=== PATIENT | male | born 1995 | race Caucasian/White ===

== ENCOUNTER 2024-01-29 10:23 | Outpatient (REF) | payer BC, SELFPAY ==
[2024-01-29 14:34] LABS: MANUAL DIFF FLAG NO
[2024-01-29 14:42] LABS: Basophils Percent Auto 0.3 % (0-2); Eosinophils Absolute Auto 0.3 X10*3/uL (0.0-0.4); Hemoglobin 15.7 g/dl (14.0-18.0); Imm Gran Abs Auto 0.03 X10*3/uL (0.00-0.03); Imm Gran Pct Auto 0.3 % (0.0-0.4); Lymphocytes Absolute Auto 2.7 X10*3/uL (1.2-4.9); Lymphocytes Percent Auto 24.6 % (20-40); Mean Corpuscular HGB Conc 33.4 g/dl (31.0-36.0); Mean Corpuscular Hemoglobin 28.8 pg (27.0-33.0); Mean Corpuscular Volume 86.1 fL (80.0-98.0); Mean Platelet Volume 10.7 fL (9.4-12.4); Monocytes Absolute Auto 0.5 X10*3/uL (0.1-1.2); Monocytes Percent Auto 4.2 % (2-11); Neutrophils Absolute Auto 7.4 x10*3/uL (2.0-8.3); Neutrophils Percent Auto 67.6 % (45-73); Platelet Count 273 X10*3/uL (160-400); Red Blood Count 5.46 X10*6/uL (4.60-5.80); Red Cell Distribution Width 12.1 % (11.0-16.0); White Blood Count 10.9 X10*3/uL (4.8-10.8)
[2024-01-29 15:12] LABS: Alanine Aminotransferase 30 U/L (0-40); Albumin Level 4.4 g/dL (3.5-5.0); Alkaline Phosphatase 93 U/L (39-117); Anion Gap 11 (12-20); Aspartate Amino Transferase 19 U/L (5-37); Blood Urea Nitrogen 11 mg/dL (9-16); Calcium 9.7 mg/dL (8.4-10.2); Carbon Dioxide 25 mmol/L (22-29); Chloride 106 mmol/L (96-108); Estimated Glomerular Filt Rate > 60; Glucose Random 101 mg/dL (60-115); Sodium 138 mmol/L (135-145); Total Protein 7.9 g/dL (6.5-8.0)
[2024-01-30 08:34] LABS: ~HepC Num1 0.08 S/CO (0.00-0.79); ~Hepatitis C Antibody Nonreactive (Nonreactive)
== END 2024-01-29 10:24 | disposition home or self-care (01) ==
LOC: HO.CHCLDS 10:23
PROVIDERS: Visit Provider Internal Medicine
DX: Z00.00 Encounter for general adult medical examination without abnormal findings (principal)
CPT/HCPCS: 36415; 80053; 85025; 86803

== ENCOUNTER 2025-01-30 12:01 | Outpatient (REF) | payer BC, SELFPAY ==
--- OUTSIDE RECORDS SUMMARY | 2025-01-30 13:00 | XMS_ITS | Encounter Summary ---
Author Organization [facility] Address [address] [place] [address] Care Team Providers Care Hydroelectric Machinery Mechanic Helper Name Role Phone Malcom Vásquez MD Primary Care Provider [facility] Primary Care Provider [phone] [facility], Pcp Primary Care Provider UnavailDaryn Moreno MD Primary Care Provider Unavail able Reason for Visit * Reason Onset Date Comments Advice 07/19/2021 Encounter Details Date Type Department Care Team Description 07/19/2021 Telephone General Surgery - [place] [address] [address] Tarun Sparks MD [address] [place] [phone] Advice Social History Tobacco Use Types Packs/Day Years Used Date Smoking Tobacco: Never Smokeless Tobacco: Never Alcohol Use Standard Drinks/Week Comments Yes 0 (1 standard drink = 0.6 oz pur e alcohol) Socially Sex Assigned at Date Recorded Not on file Job Start Date Occupation Industry Not on file Not on file Not on file documented as of this encounter Miscellaneous Notes * Telephone Encounter - Evonne Anderson - 07/19/2021 2:27 PM EDT Pt is schedule w/Dr Gross on 07/26 * Telephone Encounter - Evonne Anderson - 07/19/2021 11:38 AM EDT I offered him an appt and he wouldn't take it because he can only do Mondays and Dr Sparks isn't here on Mondays. Can we put him in with another provider for a Monday? * Telephone Encounter - Evonne Anderson - 07/19/2021 10:51 AM EDT Patient is asking for Dr Sparks to call him [phone]. He had a pylondial cyst removed last year and he has no feeling where the cyst was and there's still inflammation but no pain. His says it looks funny and wants him to have it checked out. 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 Please advise documented in this encounter Plan of Treatment Not on file documented as of this encounter Visit Diagnoses Not on filedocumented in this encounter Care Teams Hydroelectric Machinery Mechanic Helper Relationship Specialty Start Date End Date Malcom Vásquez MD PCP - General Internal Medicine 12/21/20 07/25/21 [facility] [address] [place] [address] PCP - General Family Practice 07/26/21 06/05/22 [facility], Pcp [address] [place] [address] PCP - General Internal Medicine 06/06/22 10/06/22 Dayrn Mariscal MD [address] [place] [address] PCP - General Family Practice 10/07/22 documented as of this encounter
--- OUTSIDE RECORDS SUMMARY | 2025-01-30 13:00 | XMS_ITS | Clinical Summary ---
Author Organization [facility] Address [address] [place] [address] Care Team Providers Care Tractor Trailer Driver Name Role Phone Daryn Mariscal MD Primary Care Provider Unavail able Allergies No known active allergies Medications No known medications Active Problems Problem Noted Date Elevated blood pressure reading 12/18/19 20 Pilonidal cyst 12/18/2019 Morbid obesity 10/20/2016 Dermatitis Resolved Problems Problem Noted Date Resolved Date NO ACTIVE MEDICAL PROBLEMS 10/20 Immunizations Name Administration Dates Next Due Hepatitis B > 19yrs 11/02/2016,06/01/2016,2015 PPD-RBMG 04/27/2016,07/29/2013 Tdap 07/29/2013 Family History Medical History Relation Name Comments No Known Problems Father Throat Cancer Maternal Grandfather No Known Problems Paternal Grandfather No Known Problems Paternal Grandmother Blindness Negative Hx Cataract Negative Hx Glaucoma Negative Hx Macular Degeneration Negative Hx Strabismus Negative Hx Relation Name Status Comments Father Maternal Grandfather Alive Maternal Grandmother Alive Mother Alive Paternal Grandfather Paternal Grandmother Social History Tobacco Use Types Packs/Day Years Used Date Smoking Tobacco: Never Assessed Passive Smoke Exposure: Never Smokeless Tobacco: Never Tobacco Cessation:Counseling Given: No Alcohol Use Standard Drinks/Week Comments Never 0 (1 standard drink = 0.6 oz pur e alcohol) Socially Sex Assigned at Date Recorded Not on file Job Start Date Occupation Industry Not on file Not on file Not on file Last Filed Vital Signs Vital Sign Reading Time Taken Comments Blood Pressure 138/82 11/09/2023 10:23 AM EST Pulse 105 11/09/2023 10:23 AM EST Temperature 36.8 ??C (98.3 ??F) 11/09/2023 10:[address] Respiratory Rate 20 12/18/2019 12:38 PM EDT Oxygen Saturation 97% 10/20/2016 8:41 AM EST Inhaled Oxygen Concentration - - Weight 142.4 kg (314 lb) 11/09/2023 10:23 AM EST Height 188 cm (6' 2 ) 11/09/2023 10:23 AM EST Body Mass Index 40.32 11/09/2023 10:23 AM EST Plan of Treatment Health Maintenance Due Date Last Done Comments Covid-19 Vaccine (#1) 06/22/1995 BASELINE HEALTH EXAM 18-39 07/18/202307/18, 07/18/2018, 03/24/2016, Additional history exists CHOLESTEROL SCREENING 07/18/2023 07/18/2018, 016 DTAP/TDAP/TD (2 - Td or Tdap) 07/29/2023 07/29/2013 BMI CHECK/ADVISE 09/18/2024 07/18/2018, , 03/24/2016 DEPRESSION SCREENING/FOLLOWUP 09/18/2024 SOCIAL NEEDS SCREENING 09/18/2024 INFLUENZA (Season Ended) 2025 PNEUMOCOCCAL VACCINE FOR HIG H RISK PATIENTS (#1) 12/22/2059 Care Teams Tractor Trailer Driver Relationship Specialty Start Date End Date Daryn Mariscal MD PCP - General Family Practice 10/07/22
--- OUTSIDE RECORDS SUMMARY | 2025-01-30 13:00 | XMS_ITS | Encounter Summary ---
Author Organization [facility] Address [address] [place] [address] Care Team Providers Care Piece Goods Clerk Name Role Phone Fracisco Jackson MD Primary Care Provider Marcello Cano MD Primary Care Provider Unavail able Fracisco Alejandro PA-C Primary Care Provider [phone] Malcom Vásquez MD Primary Care Provider [facility] Primary Care Provider [phone] [facility] Primary Care Provider UnavailDaryn Moreno MD Primary Care Provider Unavail able Encounter Details Date Type Department Care Team Description 01/23/2013 Release of Information Medical Records [address] [place] [address] Abstract, Provider Social History Tobacco Use Types Packs/Day Years Used Date Smoking Tobacco: Never Smokeless Tobacco: Never Alcohol Use Standard Drinks/Week Comments No 0 (1 standard drink = 0.6 oz pur e alcohol) Sex Assigned at Date Recorded Not on file Job Start Date Occupation Industry Not on file Not on file Not on file documented as of this encounter Plan of Treatment Not on file documented as of this encounter Visit Diagnoses Not on filedocumented in this encounter Care Teams Piece Goods Clerk Relationship Specialty Start Date End Date Fracisco Jackson MD PCP - General Internal Medicine 01/18/13 07/24/13 Marcello Sesay MD PCP - General Internal Medicine 07/25/13 12/16/20 Fracisco Alejandro PA-C [address] [place] [address] PCP - General Internal Medicine 12/17/20 12/20/20 Malcom Vásquez MD [address] [place] [address] PCP - General Internal Medicine 12/21/20 07/25/21 [facility] [address] [place] [address] PCP - General Family Practice 07/26/21 06/05/22 [facility] [address] [place] [address] PCP - General Internal Medicine 06/06/22 10/06/22 Daryn Mariscal MD [address] [place] [address] PCP - General Family Practice 10/07/22 documented as of this encounter
--- OUTSIDE RECORDS SUMMARY | 2025-01-30 13:00 | XMS_ITS | Encounter Summary ---
Author Organization [employer] Address [address] [place] [address] [place] [address] Care Team Providers Care Event Crew Technician Name Role Phone Evi Holm MD Primary Care Provider Reason for Visit * Reason Onset Date Comments Letter for School/Work 12/08/2023 Encounter Details Date Type Department Care Team ([facility] st Contact Info) Description 12/08/2023 Telephone [facility] [address] [place] [address] Evi Holm MD [address] [place], [place] [id number] Letter for School/Work Social History Tobacco Use Types Packs/Day Years Used Date Smoking Tobacco: Never Passive Smoke Exposure: Never Smokeless Tobacco: Never Sex and Gender Information Value Date Recorded Sex Assigned at Male 07/18/2022 10:39 AM EDT Legal Sex Male 10:39 AM EDT Gender Identity Male 07/18/2022 10:39 AM EDT Sexual Orientation Choose not to disclose 2021 10:39 AM EDT documented as of this encounter Miscellaneous Notes * Telephone Encounter - Tracee Crockett - 12/08/2023 2:04 PM EDT Tc from pt requesting a letter of renewal for message therapy. Pt needs letter every year. Previousletter was given on 12/06. documented in this encounter Plan of Treatment Not on file documented as of this encounter Visit Diagnoses Not on filedocumented in this encounter Care Teams Event Crew Technician Relationship Specialty Start Date End Date Evi Holm MD [address] [place] [address] PCP - General Internal Medicine 07/19/21 documented as of this encounter
--- OUTSIDE RECORDS SUMMARY | 2025-01-30 13:00 | XMS_ITS | Encounter Summary ---
Author Organization [facility] Address [address] [place] [address] Care Team Providers Care Lemon Grower Name Role Phone Marcello Sesay MD Primary Care Provider Unavail able Fracisco Alejandro PA-C Primary Care Provider [phone] Malcom Vásquez MD Primary Care Provider Unava [facility] Primary Care Provider [phone] [facility], Pcp Primary Care Provider Unavailabl Daryn Schwartz MD Primary Care Provider Unavail able Reason for Visit * Reason Onset Date Comments immunizations 05/24/2016 Encounter Details Date Type Department Care Team Description 05/24/2016 Telephone Adult Medicine [address] [address] Marcello Sesay MD immunizations Social History Tobacco Use Types Packs/Day Years Used Date Smoking Tobacco: Never Smokeless Tobacco: Never Alcohol Use Standard Drinks/Week Comments No 0 (1 standard drink = 0.6 oz pur e alcohol) rare Sex Assigned at Date Recorded Not on file Job Start Date Occupation Industry Not on file Not on file Not on file documented as of this encounter Miscellaneous Notes * Telephone Encounter - Joelle Donaldson - 05/25/2016 9:15 AM EDT Patient notified to go to the lab to have titer done. * Telephone Encounter - Marcello Sesay MD - 05/24/2016 5:32 PM EDT Order for measles titer is in * Telephone Encounter - Alejandra Porras M.A. - 05/24/2016 3:43 PM EDT I do not see measles in titers. Please review and advise * Telephone Encounter - Joelle Donaldson - 05/24/2016 3:41 PM EDT Patient had titers done. It did not include the measles which he needs for school. They do not allow him in class Until he gets this done. Can you please place? documented in this encounter Plan of Treatment Not on file documented as of this encounter Results * RUBEOLA ANTIBODY IGG (06/01/2016 10:08 AM EDT) MEASLES IGG POSITIVE POSITIVE 06/06/2016 6:12 PM EDT [facility] 06/01/2016 10:0 8 AM EDT 06/01/2016 10:09 AM EDT Marcello Sesay MD LAB Performing Organization Address City/State/[facility] Co de Phone Number [facility] [address] [facility] documented in this encounter Visit Diagnoses Diagnosis Screening- Primary Screening for unspecified condition documented in this encounter Care Teams Lemon Grower Relationship Specialty Start Date End Date Marcello Sesay MD PCP - General Internal Medicine 07/25/13 12/16/20 Fracisco Alejandro PA-C [address] [place] [address] PCP - General Internal Medicine 12/17/20 12/20/20 Malcom Vásquez MD [address] [place] [address] PCP - General Internal Medicine 12/21/20 07/25/21 [facility] [address] [place] [address] PCP - General Family Practice 07/26/21 06/05/22 [facility], Pcp [address] [place], [place] [address], [place] [address] PCP - General Internal Medicine 06/06/22 10/06/22 Daryn Mariscal MD [address] [place] [address] PCP - General Family Practice 10/07/22 documented as of this encounter
--- OUTSIDE RECORDS SUMMARY | 2025-01-30 13:00 | XMS_ITS | Encounter Summary ---
Author Organization [facility] Address [address] [place] [address] Care Team Providers Care Solar Manufacturer'S Representative Name Role Phone Marcello Sesay MD Primary Care Provider Unavail able Fracisco Alejandro PA-C Primary Care Provider [phone] Malcom Vásquez MD Primary Care Provider [facility] Primary Care Provider [phone] [facility], Pcp [facility] Daryn Schwartz MD Primary Care Provider Unavail able Encounter Details Date Type Department Care Team Description 07/18/2016 Release of Information Medical Records [address] [place] [id number] Abstract, Provider Social History Tobacco Use Types [...] on filedocumented in this encounter Care Teams Solar Manufacturer'S Representative Relationship Specialty Start Date End Date Marcello Sesay MD PCP - General Internal Medicine 07/25/13 12/16/20 Fracisco Alejandro PA-C [address] [place] [id number] PCP - General Internal Medicine 12/17/20 12/20/20 Malcom Vásquez MD [address] [place] [address] PCP - General Internal Medicine 12/21/20 07/25/21 [facility] [address] [place] [address] PCP - General Family Practice 07/26/21 06/05/22 [facility], Pcp [address] [place] [address] PCP - General Internal Medicine 06/06/22 10/06/22 Daryn Mariscal MD [address] [place] [address] PCP - General Family Practice 10/07/22 documented as of this encounter
--- OUTSIDE RECORDS SUMMARY | 2025-01-30 13:00 | XMS_ITS | Encounter Summary ---
Author Organization [facility] Address [address] [place] [address] Care Team Providers Care Drop Forge Operator Name Role Phone Marcello Sesay MD Primary Care Provider Unavail able Fracisco Alejandro PA-C Primary Care Provider [phone] Malcom Vásquez MD Primary Care Provider Unava [facility] Primary Care Provider [phone] [phone] [facility] Primary Care Provider Unavailabl Daryn Schwartz MD Primary Care Provider Unavail able Reason for Visit * Reason Onset Date Comments other 06/24/2020 Encounter Details Date Type Department Care Team Description 06/24/2020 Telephone General Surgery - [place] [address] [address] Tarun Sparks MD [address] [place] [phone] other Social History Tobacco Use Types Packs/Day Years Used Date Smoking Tobacco: Never Smokeless Tobacco: Never Alcohol Use Standard Drinks/Week Comments Yes 0 (1 standard drink = 0.6 oz pur e alcohol) Socially Sex Assigned at Date Recorded Not on file Job Start Date Occupation Industry Not on file Not on file Not on file COVID-19 Exposure Response Date Recorded In the last month, have you been in contact with someone who was confirmed or suspected to have Coronavirus / COVID-19? No / Unsure 06/26/2020 10:40 AM EDT documented as of this encounter Miscellaneous Notes * Telephone Encounter - Chasity Mccoy - 06/25/2020 11:39 AM EDT Pt is schedule with Dr. Gross at 1:30pm. * Telephone Encounter - Tarun Sparks MD - 06/24/2020 12:13 PM EDT [facility]. If nobody here, you can pull the drain. * Telephone Encounter - Abhishek Solorio - 06/24/2020 9:44 AM EDT Patient called in stating that he had a procedure done 06/22 (EXC PILONIDAL CYST) and has a drain in and was told to come in and see someone on Monday to have the drain out but patient isn't sure whohe is supposed to come in and see. Please contact patient. documented in this encounter Plan of Treatment Not on file documented as of this encounter Visit Diagnoses Not on filedocumented in this encounter Care Teams Drop Forge Operator Relationship Specialty Start Date End Date Marcello Sesay MD PCP - General Internal Medicine 07/25/13 12/16/20 Fracisco Alejandro PA-C [address] [place] [address] PCP - General Internal Medicine 12/17/20 12/20/20 Malcom Vásquez MD [address] [place], [place] PCP - General Internal Medicine 12/21/20 07/25/21 [facility] [address] [place] [address] PCP - General Family Practice 07/26/21 06/05/22 [facility] [address] [place], [place] PCP - General Internal Medicine 06/06/22 10/06/22 Daryn Mariscal MD [address] [place] [address] PCP - General Family Practice 10/07/22 documented as of this encounter
--- OUTSIDE RECORDS SUMMARY | 2025-01-30 13:00 | XMS_ITS | Encounter Summary ---
Author Organization [employer] Address [address] [facility] 7 [place] [address] Care Team Providers Care Fire Department Battalion Chief Name Role Phone Evi Holm MD Primary Care Provider Reason for Visit * Reason Onset Date Comments Medication Question 01/30/2025 Encounter Details Date Type Department Care Team ([facility] Contact Info) Description 01/30/2025 Telephone [facility] [address] [place] [address] Evi Holm MD [address] [place], [place] [phone] Medication Question Social History Tobacco Use Types Packs/Day Years Used Date Smoking Tobacco: Never Passive Smoke Exposure: Never Smokeless Tobacco: Never Depression Answer Date Recorded Patient Health Questionnaire-9 Score 0 01/30/2025 Patient Health Questionnaire-9 Score 0 01/30/2025 Last PHQ-9: Questionnaire Data Not on file 0 01/30/2025 Housing Stability Answer Date Recorded What is your housing situation today? I have adina nicolas 01/30/[address] you li ve. Do you have problems with any of the following? None of the above 01/30/2025 Food Insecurity Answer Date Recorded Within the past 12 months, y ou worried that your food would run out before you got money to buy more: Never True 01/30/2025 Within the past 12 months,th e food you bought just didn't last and you didn't have enough money to get more: Never True Transportation Answer Date Recorded In the past 12 months, has l ack of transportation kept you from medical appts, meetings, work or from getting things needed for daily living? No 01/30/2025 Utilities Answer Date Recorded In the past 12 months, has t he electric, gas, oil or water company threatened to shut off services in your home? No 01/30/2025 Depression Answer Date Recorded Patient Health Questionnaire-2 Score 0 01/30/2025 Internet Access Answer Date Recorded Internet Access Q1 Yes 01/30/2025 Internet Access Q2 Not on file 01/30/2025 Sex and Gender Information Value Date Recorded Sex Assigned at Male 07/18/2022 10:39 AM EDT Legal Sex Male 10:39 AM EDT Gender Identity Male 07/18/2022 10:39 AM EDT Sexual Orientation Choose not to disclose 2021 10:39 AM EDT documented as of this encounter Functional Status * Over the past 2 weeks, how often have you been bothered by any of the following problems? Question Answer Date of Assessment Author Patient Health Questionnaire-2 Score 0 01/16 12:00 PM EDT Nitza Manrique MA * Little interest or pleasure in doing things Answer Date of Assessment Author Not at all 01/30/2025 12:00 PM EDT Jonathan Manrique MA * Feeling down, depressed, or hopeless Answer Date of Assessment Author Not at all 01/30/2025 12:00 PM EDT Jonathan Manrique MA * Trouble falling or staying asleep, or sleeping too much Answer Date of Assessment Author Not at all 01/30/2025 12:00 PM Jonathan Barrera MA * Feeling tired or having little energy Answer Date of Assessment Author Not at all 01/30/2025 12:00 PM EDT Jonathan Manrique MA * Poor appetite or overeating Answer Date of Assessment Author Not at all 01/30/2025 12:00 PM EDT Jonathan Manrique MA * Feeling bad about yourself - or that you are a failure or have let yourself or your family down Answer Date of Assessment Author Not at all 01/30/2025 12:00 PM EDT Jonathan Manrique MA * Trouble concentrating on things, such as reading the newspaper or watching television Answer Date of Assessment Author Not at all 01/30/2025 12:00 PM DONNAT Jonathan Manrique MA * Moving or speaking so slowly that other people could have noticed? Or the opposite - being so fidgety or restless that you have been moving around a lot more than usual. Answer Date of Assessment Author Not at all 01/30/2025 12:00 PM EDT Jonathan Manrique MA * Thoughts that you would be better off or hurting yourself in some way Answer Date of Assessment Author Not at all 01/30/2025 12:00 PM EDT Jonathan Manrique MA * Patient Health Questionnaire-9 Score Answer Date of Assessment Author 0 01/30/2025 12:00 PM EDT Jonathan Manrique MA documented as of this encounter Miscellaneous Notes * Telephone Encounter - Vashti Douglas RN - 01/30/2025 11:55 AM EDT Pt walk in, Pharmacy needed changed. Meds reordered to correct pharmacy and sent to MD for signature. documented in this encounter Plan of Treatment Not on file documented as of this encounter Visit Diagnoses Diagnosis Tinea pedis of right foot Left wrist pain Pain in joint, forearm Severe obesity (BMI >= 40) (CMS/HCC) documented in this encounter Additional Health Concerns Assessment Noted Time PHQ-9 Depression Total Score: 0 01/31/20 25 12:00 PM EDT documented as of this encounter Care Teams Fire Department Battalion Chief Relationship Specialty Start Date End Date Evi Holm MD [address] [place] [address] PCP - General Internal Medicine 07/19/21 documented as of this encounter
--- OUTSIDE RECORDS SUMMARY | 2025-01-30 13:00 | XMS_ITS | Clinical Summary ---
Author Organization [employer] Address [address] [facility] 7[address] [place] [address] Care Team Providers Care Information Assurance Officer Name Role Phone Evi Holm MD Primary Care Provider Allergies No known active allergies Medications ibuprofen 600 MG tabletIndicatio ns:Left wrist pain 1 tablet by mouth with food 3 times daily for 5 days, then as needed for pain 30 tablet 3 Active Semaglutide-Byo ght Management (Wegovy) 0.25 MG/0.5ML solution auto-injectorIn dications:Sever e obesity (BMI >= 40) (CMS/[facility]) 0.25 mg once a week. 2 mL 11 4 Active terbinafine (LamISIL) 250 MG tabletIndicatio ns:Tinea pedis of right foot Take 1 tablet (250 mg) by mouth Once per day for 14 days. 14 tablet 5 02/14/20 25 Active econazole nitrate 1 % creamIndication s:Tinea pedis of right foot Apply topically Once per day. 30 g 5 01/31/20 26 Active Active Problems Problem Noted Date Diagnosed Date Pilonidal cyst 12/18/2019 Elevated blood pressure reading 12/18/2019 Morbid obesity 10/20/2016 Encounters Date Type Department Care Team Description 01/30/2025 10:45 AM EDT Office Visit [facility] [address] [place] [address] Evi Holm MD Elevated blood pressure reading (Primary Dx); Annual physical exam; STD (male); Encounter for contraceptive management, unspecified type; Tinea pedis of right foot; Low back pain at multiple sites 01/30/2025 Telephone [facility] [address] [place] [address] Evi Holm MD Medication Question 01/30/2025 Travel from Last 3 Months Immunizations Immunization Administration Dates Next Due Hep B, adult 11/02/2016,06/01/2016,04/27/2016 PPD Test 04/27/2016,07/29/2013 Tdap 07/29/2013 Family History Medical History Relation Name Comments Hypertension Mother ITP Mother Relation Name Status Comments Mother Social History Tobacco Use Types Packs/Day Years Used Date Smoking Tobacco: Never Passive Smoke Exposure: Never Smokeless Tobacco: Never Depression Answer Date Recorded Patient Health Questionnaire-9 Score 0 01/30/2025 Patient Health Questionnaire-9 Score 0 01/30/2025 Last PHQ-9: Questionnaire Data Not on file 0 01/30/2025 Housing Stability Answer Date Recorded What is your housing situation today? I have adina valenzuela 01/30/[address] you li [...] EDT Sexual Orientation Choose not to disclose 10/31/ 2022 10:39 AM EDT Last Filed Vital Signs Vital Sign Reading Time Taken Comments Blood Pressure 133/77 01/30/2025 10:54 AM EDT Pulse 92 01/30/2025 10:54 AM EDT Temperature 36.7 ??C (98.1 ??F) 01/30/2025 10:54 AM E DT Respiratory Rate 20 01/30/2025 10:54 AM EDT Oxygen Saturation 98% 01/30/2025 10:54 AM EDT Inhaled Oxygen Concentration - - Weight 132 kg (292 lb) 01/30/2025 10:54 AM EDT Height 185.4 cm (6' 1 ) 01/30/2025 10:54 AM EDT Body Mass Index 38.52 01/30/2025 10:54 AM EDT Plan of Treatment Health Maintenance Due Date Last Done Comments Family Planning (PISQ) 2009 DTaP/Tdap/Td Vaccines (2 - T d or Tdap) 07/29/2023 07/29/2013 COVID-19 Vaccine ( - 2023-2 5 season) 2024 Influenza Vaccine (#1) 2024 Alcohol/Substance Use Screening 01/30/2026 01/30/2025 Depression Screening 01/30/2026 01/30/2025, 01/30/2025 SDOH Screening 01/30/2026 01/30/2025 Tobacco Screening 01/30/2026 01/30/2025 Lipid Panel 07/26/2026 07/26/2021 Zoster Vaccines (1 of 2) 2044 RSV Patients and Patients Aged 60 years or older (1 - 1-dose 75+ series) 2069 Hepatitis B Vaccines Completed 11/02/2016, 06/01/2016, 04/27/2016 HIV Screening Completed 07/26/2021 Hepatitis C Screening Completed 01/29/2024 HIB Vaccines Aged Out No longer eligi ble based on patient's age to complete this topic HPV Vaccines Aged Out No longer eligi ble based on patient's age to complete this topic Hepatitis A Vaccines Aged Out No long er eligible based on patient's age to complete this topic IPV Vaccines Aged Out No longer eligi ble based on patient's age to complete this topic Meningococcal B Vaccine Aged Out No l onger eligible based on patient's age to complete this topic Meningococcal Vaccine Aged Out No marce harshad eligible based on patient's age to complete this topic Pneumococcal Vaccine: Pediatrics (0 to 5 Years) and At-Risk Patients (6 to 49) Years) Aged Out No longer eligible b ased on patient's age to complete this topic RSV under 20 months Aged Out No longe r eligible based on patient's age to complete this topic Rotavirus Vaccines Aged Out No longer eligible based on patient's age to complete this topic Procedures Procedure Name Priority Date/Time Associated Diagnosis Comments HEPATITIS C AB W/REFL TO HCV RNA, QN, PCR Routine 01/29/2024 10:30 AM EDT Annual physical exam HIV 1/2 ANTIGEN/ANTIBODY, FOURTH GENERATION W/RFL Routine 07/26/2021 11:28 AM EST LIPID PANEL, STANDARD Routine 07/26/2021 11:28 AM EST from Last 3 Months or Most Recently Relevant to Health Maintenance Results * Hepatitis C Antibody with Reflex to HCV, RNA, Quantitative, Real-Time PCR (01/29/2024 10:30 AM EDT) Hepatitis C Antibody Nonreactive Nonreactive [facility] Comment:Antibodies to HCV no t detected; does not exclude early acuteHCV infection. Blood Venous blood specimen / Unknown 01/29/2024 10:30 AM EDT 01/29/2024 2:32 PM EDT Evi Holm MD LAB BLOOD ORDERABLES Final Result [facility] [address] [place] [phone] * HIV 1/2 ANTIGEN/ANTIBODY,FOURTH GENERATION W/RFL (07/26/2021 11:28 AM EST) HIV-1/2 ANTIGEN AND ANTIBODIES, 4TH GENERATION W/ REFLEX NON-REACT CARISSA NON-REACT CARISSA [facility] Comment: HIV-1 antigen and HIV-1/HIV-2 antibodies were not detected. There is no laboratory evidence of HIV infection. ?? PLEASE NOTE: This information has been disclosed to you from records whose confidentiality may be protected by state law. ??If your state requires such protection, then the state law prohibits you from making any further disclosure of the information without the specific written consent of the person to whom it pertains, or as otherwise permitted by law. A general authorization for the release of medical or other information is NOT sufficient for this purpose. ? For additional information please refer to http://[employer]/faq/EAO922 (This link is being provided for informational/ educational purposes only.) ? The performance of this assay has not been clinically validated in patients less than 2 years old. ?? 07/26/2021 11:2 8 AM EST us Evi Holm MD LAB BLOOD ORDERABLES Final Result Performing Organization Address City/State/[facility] Co de Phone Number [facility] [address] * (ABNORMAL) LIPID PANEL, STANDARD (07/26/2021 11:28 AM EST) Chol/HDLC Ratio 4.6 <5.0 (calc) [facility] Cholesterol, Total 190 <200 mg/dL [facility] HDL Cholesterol 41 > OR = 40 mg/dL [facility] LDL Cholesterol 121(H) mg/dL (calc) [facility] Comment: Reference range: <100 ?? Desirable range <100 mg/dL for primary prevention; ?? <70 mg/dL for patients with CHD or diabetic patients ?? with > or = 2 CHD risk factors. ?? LDL-C is now calculated using the Sharon ?? calculation, which is a validated novel method providing ?? better accuracy than the Friedewald equation in the ?? estimation of LDL-C. ?? Javon DOWELL et al. BÁRBARA. 2013;310(19): 1130-7151 ?? (http://[employer]/faq/KIX467) Non-HDL Cholesterol 149(H) <130 mg/dL (calc) [facility] Comment: For patients with diabetes plus 1 major ASCVD risk ?? factor, treating to a non-HDL-C goal of <100 mg/dL ?? (LDL-C of <70 mg/dL) is considered a therapeutic ?? option. Triglycerides 168(H) <150 mg/dL [facility] 07/26/2021 11:2 8 AM EST Evi Holm MD LAB BLOOD ORDERABLES Final Result [facility] [address] from Last 3 Months or Most Recently Relevant to Health Maintenance Insurance [facility] PPO Care Teams Information Assurance Officer Relationship Specialty Start Date End Date Evi Holm MD [address] [place] [address] PCP - General Internal Medicine 07/19/21
--- OUTSIDE RECORDS SUMMARY | 2025-01-30 13:00 | XMS_ITS | Encounter Summary ---
Author Organization [facility] Address [facility] [place] [address] Care Team Providers Care Burn Out Scarfing Operator Name Role Phone Daryn Mariscal MD Primary Care Provider Unavail able Encounter Details Date Type Department Care Team Description 02/06/2023 Parking Officer Report Medical Records [address] [place] [id number] Nati Dickens PA-C Social History Tobacco Use Types Packs/Day Years [...] on filedocumented in this encounter Care Teams Burn Out Scarfing Operator Relationship Specialty Start Date End Date Daryn Mariscal MD PCP - General Family Practice 10/07/22 documented as of this encounter
--- OUTSIDE RECORDS SUMMARY | 2025-01-30 13:00 | XMS_ITS | Encounter Summary ---
Author Organization [employer] Address [address] [facility] 7 [place] [address] Care Team Providers Care Office Equipment Technician Name Role Phone Evi Holm MD Primary Care Provider Encounter Details Date Type Department Care Team (Latest Contact Info) Description 01/30/2025 Travel Social History Tobacco Use Types Packs/Day Years [...] Not at all 01/30/2025 12:00 PM EDT Jonathna Manrique MA * Feeling down, depressed, or hopeless Answer Date of Assessment Author Not at all 01/30/2025 12:00 PM EDT Jonathan Manrique MA * Trouble falling or staying asleep, or sleeping too much Answer Date of Assessment Author Not at all 01/30/2025 12:00 PM EDT Jonathan Manrique MA * Feeling tired or having little [...] 01/30/2025 12:00 PM Jonathan Barrera MA * Trouble concentrating on things, such as reading the newspaper or watching television Answer Date of Assessment Author Not at all 01/30/2025 12:00 PM Jonathan Barrera MA * Moving or speaking so slowly that other people could have noticed? Or the opposite - being so fidgety or restless that you have been moving around a lot more than usual. Answer Date of Assessment Author Not at all 01/30/2025 12:00 PM Jonathan Barrera MA * Thoughts that you would be better off or hurting yourself in some way Answer Date of Assessment Author Not at all 01/30/2025 12:00 PM EDT Jonathan Manrique MA * Patient Health Questionnaire-9 Score Answer Date of Assessment Author 0 01/30/2025 12:00 PM EDT Jonathan Manrique MA documented as of this encounter Plan of Treatment Not on file documented as of this encounter Visit Diagnoses Not on filedocumented in this encounter Additional Health Concerns Assessment Noted Time PHQ-9 Depression Total Score: 0 01/31/20 25 12:00 PM EDT documented as of this encounter Care Teams Office Equipment Technician Relationship Specialty Start Date End Date Evi Holm MD [address] [place] [phone] PCP - General Internal Medicine 07/19/21 documented as of this encounter
--- OUTSIDE RECORDS SUMMARY | 2025-01-30 13:00 | XMS_ITS | Encounter Summary ---
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 Referred To Contact Urology Diagnoses Encounter for contraceptive management, unspecified type Evi Holm MD [address] [place] [address] Phone: tel: fax: Referral ID Status Reason Start Date Expiration Date Visits Requested Visits Authorized [id number] Pending Review Specialty Services Required 01/30/2025 01/30/2026 1 1 Reason for Visit * Reason Comments Annual Exam Snoring Encounter Details Date Type Department Care Team (Latest Contact Info) Description 01/30/2025 10:45 AM EDT Office Visit [facility] [address] [place], [place] [phone] Evi Holm MD [address] [place], [place] [phone] Elevated blood pressure reading (Primary Dx); Annual physical exam; STD (male); Encounter for contraceptive management, unspecified type; Tinea pedis of right foot; Low back pain at multiple sites Social History Tobacco Use Types Packs/Day Years [...] AM EDT documented as of this encounter Last Filed Vital Signs Vital Sign Reading [...] Mass Index 38.52 01/30/2025 10:54 AM EDT documented in this encounter Functional Status * Over the past 2 weeks, how often have you been bothered by any of the following problems? Question Answer Date of Assessment Author Patient Health Questionnaire-2 Score 0 01/16 12:00 PM Nitza Barrera MA * Little interest or pleasure in doing things Answer Date of Assessment Author Not at all 01/30/2025 12:00 PM Jonathan Barrera MA * Feeling down, depressed, or hopeless Answer Date of Assessment Author Not at all 01/30/2025 12:00 PM Jonathan Barrera MA * Trouble falling or staying asleep, or sleeping too much Answer Date of Assessment Author Not at all 01/30/2025 12:00 PM Jonathan Barrera MA * Feeling tired or having little energy Answer Date of Assessment Author Not at all 01/30/2025 12:00 PM Jonathan Barrera MA * Poor appetite or overeating Answer Date of Assessment Author Not at all 01/30/2025 12:00 PM Jonathan Barrera MA * Feeling bad about yourself - [...] 01/30/2025 12:00 PM Jonathan Barrera MA * Patient Health Questionnaire-9 Score Answer Date of Assessment Author 0 01/30/2025 12:00 PM Jonathan Barrera MA documented as of this encounter Progress Notes * Evi Holm MD - 01/30/2025 10:45 AM EDT SUBJECTIVE Jason Small is a 29 y.o. male who presents for Annual Exam and Snoring. HPI Patient is here for his annual physical exam. He is doing overall well. He is interested in getting a vasectomy and would like to be referred to urology Has history of chronic back pain for which she received messages which are very helpful. Problem List[1] Allergies[2] Medications Ordered Prior to Encounter[3] Review of Systems Constitutional: Negative for activity change, appetite change, chills and diaphoresis. HENT: Negative for dental problem, drooling and ear discharge. Eyes: Negative for pain and itching. Respiratory: Negative for cough, choking and chest tightness. Cardiovascular: Negative for palpitations and leg swelling. Gastrointestinal: Negative for abdominal pain, anal bleeding and blood in stool. Endocrine: Negative for cold intolerance and heat intolerance. Genitourinary: Negative for flank pain, frequency and genital sores. Musculoskeletal: Negative for back pain. Neurological: Negative for light-headedness, numbness and headaches. Psychiatric/Behavioral: Negative for agitation, confusion and decreased concentration. OBJECTIVE Vitals: 01/30/25 1054 BP: 133/77 BP Location: Left arm Patient Position: Sitting BP Cuff Size: Adult long Pulse: 92 Resp: 20 Temp: 98.1 ??F (36.7 ??C) TempSrc: Oral SpO2: 98% Weight: 292 lb (132 kg) Height: 6' 1 (1.854 m) Physical Exam Constitutional: General: He is not in acute distress. Appearance: Normal appearance. He is obese. He is not ill-appearing, toxic- appearing or diaphoretic. HENT: Head: Normocephalic. Right Ear: Tympanic membrane normal. Left Ear: Tympanic membrane normal. Nose: Nose normal. Eyes: General: No scleral icterus. Right eye: No discharge. Left eye: No discharge. Pupils: Pupils are equal, round, and reactive to light. Cardiovascular: Rate and Rhythm: Normal rate and regular rhythm. Heart sounds: No murmur heard. No friction rub. No gallop. Pulmonary: Effort: Pulmonary effort is normal. No respiratory distress. Breath sounds: Normal breath sounds. No stridor. No wheezing, rhonchi or rales. Chest: Chest wall: No tenderness. Abdominal: General: Abdomen is flat. There is no distension. Palpations: Abdomen is soft. There is no mass. Tenderness: There is no abdominal tenderness. There is no right CVA tenderness, guarding or rebound. Hernia: No hernia is present. Musculoskeletal: General: Normal range of motion. Cervical back: Normal range of motion. Skin: General: Skin is warm. Comments: Intertrigo of the 4 to webs of the right foot with erythema with a fine scale in a moccasin like distribution of the sole of the right foot. Left foot is clear. Neurological: General: No focal deficit present. Mental Status: He is alert. Psychiatric: Mood and Affect: Mood normal. Behavior: Behavior normal. Assessment/Plan Assessment/Plan Diagnoses and all orders for this visit: Elevated blood pressure reading Comments: Blood pressure is at goal today Continue with the DASH diet and weight loss. Orders: - CBC auto differential; Future - Comprehensive Metabolic Panel; Future - Lipid Panel, Standard; Future - TSH W/Reflex to FT4; Future Annual physical exam Comments: Normal cardiopulmonary exam Patient is to maintain a healthy and balanced diet. Labs ordered. Patient will be contacted with results. Orders: - CBC auto differential; Future - Comprehensive Metabolic Panel; Future - Lipid Panel, Standard; Future - TSH W/Reflex to FT4; Future STD (male) Comments: Had multiple sexual partners within the last year He is asymptomatic STD screen ordered. Patient will be contacted with results. Orders: - Chlamydia/N. Gonorrhoeae RNA, TMA, Urogenitial - HIV-1/2 Antigen and Antibodies, Fourth Generation, with Reflexes; Future - Hepatitis C Antibody with Reflex to HCV, RNA, Quantitative, Real-Time PCR; Future - RPR (Monitor) with Reflex to Titer; Future - Urinalysis w/reflex microscopic; Future - Trichomonas vaginalis RNA, Qualitative, TMA, Males; Future Encounter for contraceptive management, unspecified type - Referral to Urology; Future Tinea pedis of right foot Comments: Trial of terbinafine 250 mg once a day for 14 days Eicon is all to use 2 times a day to the affected area. Keep the area dry. Orders: - terbinafine (LamISIL) 250 MG tablet; Take 1 tablet (250 mg) by mouth Once per day for 14 days. - econazole nitrate 1 % cream; Apply topically Once per day. Low back pain at multiple sites Comments: To continue with the massages. [1] Patient Active Problem List Diagnosis Pilonidal cyst Morbid obesity (CMS/HCC) Elevated blood pressure reading [2] No Known Allergies [3] Current Outpatient Medications on File Prior to Visit Medication Sig Dispense Refill ibuprofen 600 MG tablet 1 tablet by mouth with food 3 times daily for 5 days, then as needed for pain 30 tablet 0 Semaglutide-Weight Management (Wegovy) 0.25 MG/0.5ML solution auto-injector 0.25 mg once a week. 2 mL 11 No current facility-administered medications on file prior to visit. documented in this encounter Plan of Treatment Scheduled Orders Name Type Priority Associated Diagnoses Orde r Schedule CBC auto differential Lab Routine Elevated blood pressure reading Annual physical exam Expected: 01/30/2025 (Approximate), Expires: 01/30/2026 Comprehensive Metabolic Panel Lab Routine Elevated blood pressure reading Annual physical exam Expected: 01/30/2025 (Approximate), Expires: 01/30/2026 Lipid Panel, Standard Lab Routine Elevated blood pressure reading Annual physical exam Expected: 01/30/2025 (Approximate), Expires: 01/30/2026 TSH W/Reflex to FT4 Lab Routine Elevated blood pressure reading Annual physical exam Expected: 01/30/2025 (Approximate), Expires: 01/30/2026 Chlamydia/N. Gonorrhoeae RNA, TMA, Urogenitial Microbiology Routine STD (male) Ordered: 01/30/2025 HIV-1/2 Antigen and Antibodies, Fourth Generation, with Reflexes Lab Routine STD (male) Expected: 01/30/2025 (Approximate), Expires: 01/30/2026 Hepatitis C Antibody with Reflex to HCV, RNA, Quantitative, Real-Time PCR Lab Routine STD (male) Expected: 01/30/2025, Expires: 01/30/2026 RPR (Monitor) with Reflex to??Titer Lab Routine STD (male) Expected: 01/30/2025, Expires: 01/30/2026 Urinalysis w/reflex microscopic Lab Routine STD (male) Expected: 01/30/2025, Expires: 01/30/2026 Trichomonas vaginalis RNA, Qualitative, TMA, Males Lab Routine STD (male) Expected: 01/30/2025, Expires: 01/30/2026 Scheduled Referrals Name Type Priority Associated Diagnoses Orde r Schedule Referral to Urology Outpatient Referral Routine Encounter for contraceptive management, unspecified type Expected: 01/30/2025 (Approximate), Expires: 01/30/2026 documented as of this encounter Visit Diagnoses Diagnosis Elevated blood pressure reading- Primary Elevated blood pressure reading without diagnosis of hypertension Encounter for contraceptive management, unspecified type STD (male) Tinea pedis of right foot Low back pain at multiple sites documented in this encounter Additional Health Concerns Assessment Noted Time PHQ-9 Depression Total Score: 0 01/31/20 25 12:00 PM EDT documented as of this encounter Care Teams Wood Pattern Maker Relationship Specialty Start Date End Date Evi Holm MD [address] [place] [id number] PCP - General Internal Medicine 07/19/21 documented as of this encounter
--- OUTSIDE RECORDS SUMMARY | 2025-01-30 13:00 | XMS_ITS | Encounter Summary ---
Author Organization [facility] Address [address] [place] [address] Care Team Providers Care Epic Ambulatory Analysts Name Role Phone Marcello Sesay MD Primary Care Provider Unavail able Fracisco Alejandro PA-C Primary Care Provider [phone] Malcom Vásquez MD Primary Care Provider Unava [facility] Primary Care Provider [phone] [facility], Pcp [facility] D[facility] Schwartz MD Primary Care Provider Unavail able Encounter Details Date Type Department Care Team Description 06/22/2020 Hospital Medical Records [address] [place] [address] Tarun Sparks MD [address] [place] [id number] Social History Tobacco Use Types Packs/Day Years Used Date Smoking Tobacco: Never Assessed Passive Smoke Exposure: Never Smokeless Tobacco: Never Alcohol Use Standard Drinks/Week Comments Never 0 [...] have Coronavirus / COVID-19? No / Unsure 06/12/2020 8:55 AM EDT documented as of this encounter Plan of Treatment Not on file documented as of this encounter Visit Diagnoses Not on filedocumented in this encounter Care Teams Epic Ambulatory Analysts Relationship Specialty Start Date End Date Marcello Sesay MD PCP - General Internal Medicine 07/25/13 12/16/20 Fracisco Alejandro PA-C [address] [place] [address] PCP - General Internal Medicine 12/17/20 12/20/20 Malcom Vásquez MD [address] [place] [address] PCP - General Internal Medicine 12/21/20 07/25/21 [facility] [address] [place] [address] PCP - General Family Practice 07/26/21 06/05/22 [facility], Pcp [address] [place] [address] PCP - General Internal Medicine 06/06/22 10/06/22 Daryn Mariscal MD [address] [place] [address] PCP - General Family Practice 10/07/22 documented as of this encounter
[2025-01-30 14:22] LABS: MANUAL DIFF FLAG NO
[2025-01-30 14:27] LABS: Basophils Absolute Auto 0.1 X10*3/uL (0.0-0.2); Basophils Percent Auto 0.5 % (0-2); Eosinophils Absolute Auto 0.3 X10*3/uL (0.0-0.4); Eosinophils Percent Auto 2.9 % (0-4); Hematocrit 46.3 % (42.0-52.0); Hemoglobin 15.6 g/dl (14.0-18.0); Imm Gran Abs Auto 0.04 X10*3/uL (0.00-0.03); Imm Gran Pct Auto 0.4 % (0.0-0.4); Lymphocytes Absolute Auto 3.2 X10*3/uL (1.2-4.9); Lymphocytes Percent Auto 31.9 % (20-40); Mean Corpuscular HGB Conc 33.7 g/dl (31.0-36.0); Mean Corpuscular Hemoglobin 29.3 pg (27.0-33.0); Mean Corpuscular Volume 86.9 fL (80.0-98.0); Mean Platelet Volume 10.3 fL (9.4-12.4); Monocytes Absolute Auto 0.5 X10*3/uL (0.1-1.2); Monocytes Percent Auto 4.8 % (2-11); Neutrophils Absolute Auto 5.9 x10*3/uL (2.0-8.3); Neutrophils Percent Auto 59.5 % (45-73); Platelet Count 300 X10*3/uL (160-400); Red Blood Count 5.33 X10*6/uL (4.60-5.80); Red Cell Distribution Width 12.3 % (11.0-16.0); White Blood Count 9.9 X10*3/uL (4.8-10.8)
[2025-01-30 14:34] LABS: Appearance Urine Turbid; Color Urine Yellow; Glucose Urine UA Negative (Negative); Leukocyte Esterase Urine Negative (Negative); Nitrite Urine Negative (Negative); PH 5.5 (5.0-9.0); Urine Blood Negative (Negative); Urine Ketones Negative (Negative); Urine Protein Negative (Neg-Trace)
[2025-01-30 15:02] LABS: Alanine Aminotransferase 34 U/L (0-40); Albumin Level 4.2 g/dL (3.5-5.0); Anion Gap 10 (12-20); Aspartate Amino Transferase 27 U/L (5-37); Bilirubin Total 0.6 mg/dL (0.0-1.0); Blood Urea Nitrogen 20 mg/dL (9-16); Calcium 9.3 mg/dL (8.4-10.2); Carbon Dioxide 24 mmol/L (22-29); Chloride 110 mmol/L (96-108); Cholesterol 168 mg/dL (<200); Estimated Glomerular Filt Rate > 60; Glucose Random 95 mg/dL (60-115); HDL Cholesterol 42 mg/dL (>40); LDL Cholesterol Calculated 108 mg/dL (<100); Potassium 4.1 mmol/L (3.3-5.1); Sodium 140 mmol/L (135-145); Total Protein 6.9 g/dL (6.5-8.0); Triglycerides 92 mg/dL (<150)
[2025-01-30 15:53] LABS: Alkaline Phosphatase 83 U/L (39-117)
[2025-01-31 08:38] LABS: HIV AB/AG Nonreactive (Nonreactive); HIV Num 1 0.06 S/CO (0.00-0.99); ~HepC Num1 0.06 S/CO (0.00-0.79); ~Hepatitis C Antibody Nonreactive (Nonreactive)
[2025-02-02 14:49] LABS: RPR Rapid Plasma Reagin NON-REACTIVE (NON-REACTIVE)
== END 2025-01-30 12:02 | disposition home or self-care (01) ==
LOC: CF 12:01
PROVIDERS: Visit Provider Internal Medicine
DX: Z00.00 Encounter for general adult medical examination without abnormal findings (principal); R03.0 Elevated blood-pressure reading, without diagnosis of hypertension; A64 Unspecified sexually transmitted disease
CPT/HCPCS: 36415; 80053; 80061; 81003; 84443; 85025; 86592; 86803; 87389

== ENCOUNTER 2025-04-30 09:42 | Outpatient (AMB) | payer BC, SELFPAY ==
--- NOTE | 2025-04-30 09:48 | A.OFFVIS_ITS ---
Intake Visit Reasons: Vasectomy consult Intake Note: PT PRESENT FOR: VASECTOMY CONSULT UROLOGY MEDICATIONS: NONE BLOOD THINNERS: NONE Aircraft Engine Mechanic Required: No Accompanied by: Self / Same As Patient Allergies No Known Allergies Allergy (Verified 04/30/25 09:48) HPI Comments Details: Jason is a very pleasant male. He is a patient of Dr Holm?.. He is seen for the following urologic condition - anxiety about health - Vasectomy evaluation Vasectomy evaluation The patient presents for vasectomy consultation. He is currently single He has fathered - to child, with a multiple partner. The youngest child is - 1-year-old. His partner is aware and permissive for a vasectomy Current form of control is barrier. 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 Patient education has been provided via AUA video, via printed information, risks of failure, recovery time, bruising and potential pain syndrome have been stressed Discussion today focused on the presence of vasectomy and the risks, benefits and alternatives that are available. Vasectomy as intended as a permanent form of control. Printed information and literature was provided to the patient. Overall there is a one in 2500 failure rate. This can occur at any time after vasectomy. Risks were discussed highlighting hematoma, spermatocele, epididymal congestion, development of sperm antibodies, and development of chronic pain estimated between 1-5%. The procedure was reviewed in detail. Anatomical diagrams of the male genitalia were used to explain the location of the vas deferens. The vas deferens will be transected, the proximal end will be cauterized, a metal clip would be applied to separate the 2 vas deferens ends. It was explained the procedure will be done in the office and takes approximately 10-15 minutes. Less common problems that arise with vasectomy include hematoma, bleeding, allergic reaction to anesthetic, epididymal infection, epididymal congestion, scrotal discomfort, spermatic leak, spermatic granuloma and the possibility of antisperm antibodies. He understands these risks and wishes to proceed. Consent was signed at the office today. He also understands that it takes 12 weeks for sperm to fully clear the system. He will need to provide a semen sample at 12 weeks and if this is not clear a 2nd sample at 16 weeks. Medical clearance to stop using prote ction will only be provided if he satisfies published criteria for sperm clearance. Easily palpable vasa Review of Systems Const Denies chills and Denies fever(s) Card Reports no additional complaints and Denies syncope Resp Denies cough GI Denies abdominal pain and Denies heartburn Reports as per HPI and Denies change in libido Neuro Denies syncope Psych Denies change in libido Endo Denies change in libido Physical Exam Const General: cooperative, healthy appearing, comfortable and no acute distress Orientation/consciousness: patient oriented x3 HEENT Face and sinus: Yes normal facial exam Mouth: moist mucous membranes Neck Neck: Yes normal visual inspection, Yes full ROM and Yes trachea midline Chest Chest palpation & inspection: normal inspection of the chest Resp Effort & Inspection: normal respiratory effort, able to speak in complete sentences and no respiratory distress GI Inspection: Yes normal to inspection Back/Spine/Pelvis Cervical Spine: normal cervical lordosis Thoracic/Lumbar Spine: thoracic and lumbar spine normal to inspection Skin General skin exam: no rashes or lesions noted Neuro General: patient oriented x3, gait normal, tone normal and moves all extremities Extrem General: Yes normal to inspection and Yes capillary refill normal Results AMB Urinalysis, Automated 2 UA Leukoctes 0 Nancy/uL Last Edit by TOMÁS Keith on 04/30/25 09:58 UA Nitrite Negative Last Edit by TOMÁS Keith on 04/30/25 09:58 UA Urobilinogen 0.2 mg/dL Last Edit by TOMÁS Keith on 04/30/25 09:5 8 UA Protein 0 mg/dL Last Edit by TOMÁS Keith on 04/30/25 09:58 UA pH 6.5 Last Edit by TOMÁS Keith on 04/30/25 09:58 UA Blood 0 Marcin/uL Last Edit by TOMÁS Keith on 04/30/25 09:58 UA Specific [place] 1.015 Last Edit by TOMÁS Keith on 04/30/25 09: 58 UA Ketone Negative Last Edit by TOMÁS Keith on 04/30/25 09:58 UA Bilirubin 0 mg/dL Last Edit by TOMÁS Keith on 04/30/25 09:58 UA Glucose 0 mg/dL Last Edit by TOMÁS Keith on 04/30/25 09:58 Assessment & Plan Assessment & Plan (1) Anxiety about health: Code(s): R45.89 - Other symptoms and signs involving emotional state Category: Medical Plan Schedule procedure Orders: Orders AMB Urinalysis Automated Today Z13.9 - Encounter for screening, unspecified Medications: New diazepam Take medication after arrival at office 2 mg PO BID PRN 2 tabs 0RF anxiety 1 day R45.89 - Other symptoms and signs involving emotional state tramadol 50 mg PO Q8H PRN 7 tabs 0RF pain N43.3 - Hydrocele, unspecified Patient Instructions: This note is constructed using voice recognition software. While every effort has been made to ensure accuracy weapons electrical engineering officer errors may have been included. Imaging studies, laboratory and physical exam results were discussed and reviewed in detail. No major barriers to patient understanding were identified. An opportunity to ask questions regarding the treatment plan was provided. All questions were answered. The patient expressed understanding and agreement with the above treatment plan. The patient is aware they should contact our office by phone for worsening of their current condition or the appearance of new urologic symptoms. Compliance is encouraged with any medications and followup testing that is ordered. It is a privilege to participate in the urologic care of your patient. If you have any questions or concerns regarding treatment for the above conditions, or other urologic issues, please do not hesitate to contact me. The office telephone contact is [phone]. Sincerely, Dr Husam Pino MD, [facility] - Urology Compassionate Specialist Care for the Genitourinary System Coding Level of Care Code New Pt Level 4 (76599) Diagnoses Anxiety about health R45.89
--- OUTSIDE RECORDS SUMMARY | 2025-04-30 10:11 | XMS_ITS | Clinical Summary ---
Author Organization [facility] Address [address] [place] [address] Care Team Providers Care Commissary Agent Name Role Phone Daryn Mariscal MD Primary Care Provider [phone] Surgical History Surgery Date Site/Laterality Comments OTHER SURGICAL HISTORY PROCEDURE: ---- OTHER ----; COMMENT: lasik eye WISDOM TOOTH EXTRACTION 2014 PROCEDURE: HISTORICAL WISDOM TEETH EXTRACTION Medical History Medical History Date Comments Dermatitis DX:Dermatitis Family History Medical History Relation Name Comments No Known Problems Father Throat cancer Maternal Grandfather No Known Problems Paternal Grandfather No Known Problems Paternal Grandmother Blindness Neg Hx Cataracts Neg Hx Glaucoma Neg Hx Macular degeneration Neg Hx Strabismus Neg Hx Relation Name Status Comments Father Maternal Grandfather Alive Maternal Grandmother Alive Mother Alive Paternal Grandfather Paternal Grandmother Social History Tobacco Use Types Packs/Day Years Used Date Smoking Tobacco: Never Assessed Smokeless Tobacco: Never Alcohol Use Standard Drinks/Week Comments Never 0 (1 standard drink = 0.6 oz pur e alcohol) Sex and Gender Information Value Date Recorded Sex Assigned at Not on file Legal Sex Male 8:49 AM EST Gender Identity Not on file Sexual Orientation Not on file Obstetrics History Last Filed Vital Signs Vital Sign Reading Time Taken Comments Blood Pressure 138/82 11/09/2023 10:23 AM EST Pulse 105 11/09/2023 10:23 AM EST Temperature - - Respiratory Rate - - Oxygen Saturation - - Inhaled Oxygen Concentration - - Weight 142 kg (314 lb) 11/09/2023 10:23 AM EST Height 188 cm (6' 2 ) 11/09/2023 10:23 AM EST Body Mass Index 40.32 11/09/2023 10:23 AM EST Plan of Treatment Health Maintenance Due Date Last Done Comments Cholesterol Screening (Lipid Panel) 08/21/2022 HIV Screening 08/21/2022 Hepatitis C Screening 08/21/2022 Social Influencers of Health Screening 08/21/2022 DTaP,Tdap,and Td Vaccines (2 - Td or Tdap) 07/29/2023 07/29/2013 COVID-19 Vaccine (1 - 2023-2 5 season) 2024 Depression Screening 09/18/2024 Influenza Vaccine (#1) 2025 Hepatitis B Vaccines Completed 11/02/2016, 06/01/2016, 04/27/2016 HIB Vaccines Aged Out No longer eligi [...] on patient's age to complete this topic MMR Vaccines Aged Out No longer eligi ble based on patient's age to complete this topic Meningococcal ACWY Vaccine Aged Out N o longer eligible based on patient's age to complete this topic Meningococcal B Vaccine Aged Out No l onger eligible based on patient's age to complete this topic Pneumococcal Vaccine: Pediatrics (0 to 5 Years) and At-Risk Patients (6 to 49 Years) Aged Out No longer eligible b ased on patient's age to complete this topic RSV Immunization Patients Under 20 months Aged Out No longer eligible b ased on patient's age to complete this topic Varicella Vaccines Aged Out No longer eligible based on patient's age to complete this topic Care Teams Commissary Agent Relationship Specialty Start Date End Date Daryn Mariscal MD [address] [place] [phone] PCP - General 10/07/22
--- OUTSIDE RECORDS SUMMARY | 2025-04-30 10:12 | XMS_ITS | Clinical Summary ---
Author Organization [employer] Address [address] [facility] [address] [place] [address] Care Team Providers Care Application Defense Manager Name Role Phone Evi Holm MD Primary Care Provider [phone] Allergies No known active allergies Medications econazole nitrate 1 % creamIndication s:Tinea pedis of right foot Apply topically Once per day. 30 g 5 01/31/20 26 Active ibuprofen 600 MG tabletIndicatio ns:Left wrist pain 1 tablet by mouth with food 3 times daily for 5 days, then as needed for pain 30 tablet 5 Active Semaglutide-Boy ght Management (Wegovy) 0.25 MG/0.5ML solution auto-injectorIn dications:Sever e obesity (BMI >= 40) ([facility]) 0.25 mg once a week. 2 mL 11 5 Active Active Problems Problem Noted Date Diagnosed Date Pilonidal cyst 12/18/2019 Elevated blood pressure reading 12/18/2019 Morbid obesity 10/20/2016 Encounters Date Type Department Care Team Description 01/31/2025 Results Follow-Up [facility] [address] [place] [address] Vashti Douglas, RICCI CBC auto differential, Comprehensive Metabolic Panel, Lipid Panel, Standard, Additional followed-up results: 5 01/30/2025 10:45 AM EDT Office Visit [facility] [address] [place] [address] Evi Holm MD Elevated blood pressure reading (Primary Dx); Annual physical exam; STD (male); Encounter for contraceptive management, unspecified type; Tinea pedis of right foot; Low back pain at multiple sites 01/30/2025 Telephone [facility] [address] [place] [address] Evi Holm MD Medication Question 01/30/2025 Travel [...] not to disclose 2021 10:39 AM EDT Last Filed Vital Signs Vital Sign Reading Time Taken Comments Blood Pressure 133/77 01/30/2025 10:54 AM EDT Pulse 92 01/30/2025 10:54 AM EDT Temperature 36.7 C (98.1 F) 01/30/2025 10:54 AM EDT Respiratory Rate 20 01/30/2025 10:54 AM EDT Oxygen Saturation 98% 01/30/2025 10:54 AM EDT Inhaled Oxygen Concentration - - Weight 132 kg (292 lb) 01/30/2025 10:54 AM EDT Height 185.4 cm (6' 1 ) 01/30/2025 10:54 AM EDT Body Mass Index 38.52 01/30/2025 10:54 AM EDT Plan of Treatment Health Maintenance Due Date Last Done Comments Disability Screening 1994 Family Planning (PISQ) 2009 HPV Vaccines (1 - Male 3-dos e series) 2009 DTaP/Tdap/Td Vaccines (2 - T d or Tdap) 07/29/2023 07/29/2013 COVID-19 Vaccine ( - 2023-2 5 season) 2024 Influenza Vaccine (#1) 2025 Alcohol/Substance Use Screening 01/30/2026 01/30/2025 Depression Screening 01/30/2026 01/30/2025, 01/30/2025 SDOH Screening 01/30/2026 01/30/2025 Tobacco Screening 01/30/2026 01/30/2025 Lipid Panel 01/30/2030 01/30/2025, 07/26/2021 Zoster Vaccines (1 of 2) 2044 RSV Patients and Patients Aged 60 years or older (1 - 1-dose 75+ series) 2069 Hepatitis B Vaccines Completed 11/02/2016, 06/01/2016, 04/27/2016 HIV Screening Completed 01/30/2025, 07/26/2021 Hepatitis C Screening Completed 01/30/2025 , 01/29/2024 HIB Vaccines Aged Out No longer [...] Years) and At-Risk Patients (6 to 49) Years Aged Out No longer eligible b ased on patient's age to complete this topic RSV under 20 months Aged Out No longe r eligible based on patient's age to complete this topic Rotavirus Vaccines Aged Out No longer eligible based on patient's age to complete this topic Procedures Procedure Name Priority Date/Time Associated Diagnosis Comments URINALYSIS WITH REFLEX MICROSCOPIC Routine 01/30/2025 12:10 PM EDT STD (male) RPR (MONITOR) W/REFL TITER Routine 01/30/2025 12:04 PM EDT STD (male) HEPATITIS C AB W/REFL TO HCV RNA, QN, PCR Routine 01/30/2025 12:04 PM EDT STD (male) HIV 1/2 ANTIGEN/ANTIBODY, FOURTH GENERATION W/RFL Routine 01/30/2025 12:04 PM EDT STD (male) TSH W/REFLEX TO FT4 Routine 01/30/2025 1 2:04 PM EDT Elevated blood pressure reading Annual physical exam LIPID PANEL, STANDARD Routine 01/30/2025 12:04 PM EDT Elevated blood pressure reading Annual physical exam COMPREHENSIVE METABOLIC PANEL Routine 01/30/2025 12:04 PM EDT Elevated blood pressure reading Annual physical exam CBC WITH AUTO DIFFERENTIAL Routine 01/30/2025 12:04 PM EDT Elevated blood pressure reading Annual physical exam from Last 3 Months Results * Urinalysis w/reflex microscopic (01/30/2025 12:10 PM EDT) Color Urine Yellow [facility] Appearance Urine Turbid [facility] PH 5.5 5.0 - 9.0 [facility] Glucose Urine UA Negative Negative mg/dL [facility] Urine Blood Negative Negative [facility] Specific [place] - Urine 1.020 1.005 - 1.025 [facility] Urine Protein Negative Neg-Trace mg/dL [facility] Urine Ketones Negative Negative mg/dL [facility] Nitrite Urine Negative Negative [facility] Leukocyte Esterase Urine Negative Negative [facility] Urine (Urine, Random) 01/30/2025 12:10 PM EDT 01/30/2025 2:25 PM EDT Narrative [facility] - 01/30/2025 2:34 PM EDT [id number], Clean Catch us Evi Holm MD LAB URINE ORDERABLES Final Result Performing Organization Address City/[facility]/ZIP Co de Phone Number [facility] [address] [place] [phone] * TSH W/Reflex to FT4 (01/30/2025 12:04 PM EDT) [facility] TSH reflex Free T4 1.20 0.32 - 4.0 uIU/mL [facility] Blood Venous blood specimen / Unknown 01/30/2025 12:04 PM EDT 01/30/2025 2:19 PM EDT us vEi Holm MD LAB BLOOD ORDERABLES Final Result Performing Organization Address [facility]/ZIP Co de Phone Number [facility] [address] [place] [phone] * (ABNORMAL) CBC auto differential (01/30/2025 12:04 PM EDT) [facility] White Blood Count 9.9 4.8 - 10.8 X10*3/uL [facility] Red Blood Count 5.33 4.60 - 5.80 X10*6/uL [facility] Hemoglobin 15.6 14.0 - 18.0 g/dl [facility] Hematocrit 46.3 42.0 - 52.0 % [facility] Mean Corpuscular Volume 86.9 80.0 - 98.0 fL [facility] Mean Corpuscular Hemoglobin 29.3 27.0 - 33.0 pg [facility] Mean Corpuscular HGB Conc 33.7 31.0 - 36.0 g/dl [facility] Red Cell Distribution Width 12.3 11.0 - 16.0 % [facility] Platelet Count 300 160 - 400 X10*3/uL [facility] Mean Platelet Volume 10.3 9.4 - 12.4 fL [facility] Neutrophils Percent Auto 59.5 45 - 73 % [facility] Imm Gran Pct Auto 0.4 0.0 - 0.4 % [facility] Lymphocytes Percent Auto 31.9 20 - 40 % [facility] Monocytes Percent Auto 4.8 2 - 11 % [facility] Eosinophils Percent Auto 2.9 0 - 4 % [facility] Basophils Percent Auto 0.5 0 - 2 % [facility] NRBC Pct Auto 0.0 0.0 - 0.2 /100WBC [facility] Neutrophils Absolute Auto 5.9 2.0 - 8.3 x10*3/uL [facility] Imm Gran Abs Auto 0.04(H) 0.00 - 0.03 X10*3/uL [facility] Lymphocytes Absolute Auto 3.2 1.2 - 4.9 X10*3/uL [facility] Monocytes Absolute Auto 0.5 0.1 - 1.2 X10*3/uL [facility] Eosinophils Absolute Auto 0.3 0.0 - 0.4 X10*3/uL [facility] Basophils Absolute Auto 0.1 0.0 - 0.2 X10*3/uL [facility] NRBC Abs Auto 0.000 0.0 - 0.012 X10*3/uL [facility] Blood Venous blood specimen / Unknown 01/30/2025 12:04 PM EDT 01/30/2025 2:19 PM EDT us Evi Holm MD LAB BLOOD ORDERABLES Final Result [facility] [address] [place] [phone] * Hepatitis C Antibody with Reflex to HCV, RNA, Quantitative, Real-Time PCR (01/30/2025 12:04 PM EDT) Hepatitis C Antibody Nonreactive Nonreactive [facility] Comment:Antibodies to HCV no t detected; does not exclude early acuteHCV infection. Blood Venous blood specimen / Unknown 01/30/2025 12:04 PM EDT 01/30/2025 2:19 PM EDT us Evi Holm MD LAB BLOOD ORDERABLES Final Result Performing Organization Address [facility]/ZIP Co de Phone Number [facility] [address] [place] [phone] * RPR (Monitor) with Reflex to??Titer (01/30/2025 12:04 PM EDT) RPR (Monitor) w/Refl Titer NON-REACTI VE NON-REACT CARISSA [facility] Comment:THIS TEST WAS PERFOR MED AT:[facility] [place] [phone] COOPER MD Rapid Plasma Reagin Ab Titer TNP [facility] Blood Venous blood specimen / Unknown 01/30/2025 12:04 PM EDT 01/30/2025 2:19 PM EDT us Evi Holm MD LAB BLOOD ORDERABLES Final Result Performing Organization Address City/[facility]/ZIP Co de Phone Number [facility] [address] [place] [phone] * HIV-1/2 Antigen and Antibodies, Fourth Generation, with Reflexes (01/30/2025 12:04 PM EDT) Pathologist [facility] HIV AB/AG Nonreactive Nonreactive [facility] Comment:HIV-1 p24 Ag and/or HIV-1/HIV-2 Ab not detected.A test result that is nonreactive does not exclude thepossibility of exposure to or infection with HIV-1 and/orHIV-2. Nonreactive results in this assay for individualswith prior exposure to HIV-1 and/or HIV-2 may be due toantigen and antibody levels that are below the limit ofdetection of this assay.The [employer] HIV Ag/Ab Combo assay result andsupplemental assay results should be interpreted inconjunction with the patient's clinical presentation,history and other laboratory results. If the results areinconsistent with clinical evidence, additional testing issuggested to confirm the result. Blood Venous blood specimen / Unknown 01/30/2025 12:04 PM EDT 01/30/2025 2:19 PM EDT us Evi Holm MD LAB BLOOD ORDERABLES Final Result [facility] [address] [place] [phone] * (ABNORMAL) Lipid Panel, Standard (01/30/2025 12:04 PM EDT) Triglycerides 92 <150 mg/dL [facility] Comment:Desirable Triglyceri de: less than 150 mg/dLBorderline High Triglyceride 150-199 mg/dLHigh Triglyceride: 200-499 mg/dLVery High Triglyceride: greater than or equal to 5OO mg/dL Cholesterol 168 <200 mg/dL [facility] Comment:Desirable Cholestero l: less than 200 mg/dLBorderline High Cholesterol: 200-239 mg/dLHigh Cholesterol: greater than 239 mg/dL LDL Cholesterol Calculated 108(H) <100 mg/dL [facility] Comment:Desirable LDL: less than 100 mg/dLNear Optimal/Above Optimal LDL: 110- 129 mg/dLBorderline High LDL: 130-159 mg/dLHigh LDL: 160-189 mg/dLVery High LDL: greater than or equal to 190 mg/dL HDL Cholesterol 42 >40 mg/dL [facility] Comment:Desirable HDL: great er than 40 mg/dL Note: This HDL assay may give artificially low results in patients with liver disease. Blood Venous blood specimen / Unknown 01/30/2025 12:04 PM EDT 01/30/2025 2:19 PM EDT us Evi Holm MD LAB BLOOD ORDERABLES Final Result [facility] [address] [place] [phone] * (ABNORMAL) Comprehensive Metabolic Panel (01/30/2025 12:04 PM EDT) Sodium 140 135 - 145 mmol/L [facility] Potassium 4.1 3.3 - 5.1 mmol/L [facility] Chloride 110(H) 96 - 108 mmol/L [facility] Carbon Dioxide 24 22 - 29 mmol/L [facility] Anion Gap 10(L) 12 - 20 [facility] Urea Nitrogen (BUN) 20(H) 9 - 16 mg/dL [facility] Creatinine, Serum 0.84 0.5 - 1.4 mg/dL [facility] Estimated Glomerular Filt Rate >60 [facility] Comment:Chronic Kidney Disea se: Estimated GFR < 60 mL/min/[id number] Kidney Disease: Estimated GFR < 15 mL/min/1.73m2 Glucose 95 60 - 115 mg/dL [facility] Calcium 9.3 8.4 - 10.2 mg/dL [facility] Bilirubin, Total 0.6 0.0 - 1.0 mg/dL [facility] Aspartate Amino Transferase 27 5 - 37 U/L [facility] Alanine Aminotransferase 34 0 - 40 U/L [facility] Total Protein 6.9 6.5 - 8.0 g/dL [facility] Albumin Level 4.2 3.5 - 5.0 g/dL [facility] Alkaline Phosphatase 83 39 - 117 U/L [facility] Blood Venous blood specimen / Unknown 01/30/2025 12:04 PM EDT 01/30/2025 2:19 PM EDT Evi Holm MD LAB BLOOD ORDERABLES Final Result [facility] [address] [place] [phone] from Last [address] [facility] PPO Care Teams Application Defense Manager Relationship Specialty Start Date End Date Evi Holm MD [address] [place] [phone] PCP - General Internal Medicine 07/19/21
== END 2025-04-30 10:14 | disposition home or self-care (01) ==
LOC: HO.HUSH 09:43
PROVIDERS: PCP Internal Medicine; Visit Provider Urology
DX: R45.89 Other symptoms and signs involving emotional state (principal); Z13.9 Encounter for screening, unspecified
CPT/HCPCS: 99204

== ENCOUNTER → 2025-04-30 09:42 | Outpatient (BNVA) | payer BC, SELFPAY | PROVIDERS: PCP Internal Medicine; Visit Provider Urology | DX: Z01.818 Encounter for other preprocedural examination (principal); R45.89 Other symptoms and signs involving emotional state | CPT/HCPCS: 81003 ==

== ENCOUNTER 2025-05-29 13:19 | Outpatient (AMB) | payer BC, SELFPAY ==
--- NOTE | 2025-05-29 13:20 | A.OFFVIS_ITS ---
Intake Visit Reasons: vasectomy Intake Note: PT PRESENT FOR: VASECTOMY UROLOGY MEDICATIONS: NONE BLOOD THINNERS: NONE Needle Valve Operator Required: No Accompanied by: Self / Same As Patient Allergies No Known Allergies Allergy (Verified 04/30/25 09:48) HPI Comments Details: Jason is a very pleasant male. He is a patient of Dr Holm?.. He is seen for the following urologic condition - anxiety about health - Vasectomy procedure Vasectomy procedure The patient presents for vasectomy procedure. He is currently single He has fathered - to 4 child, with a multiple partner. The youngest child is - greater than 1 His partner is aware and permissive for a vasectomy Current form of control is barrier. 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 Review of Systems Const Denies chills and Denies fever(s) Card Reports no additional complaints and Denies syncope Resp Denies cough GI Denies abdominal pain and Denies heartburn Reports as per HPI and Denies change in libido Neuro Denies syncope Psych Denies change in libido Endo Denies change in libido Physical Exam Const General: cooperative, healthy appearing, comfortable and no acute distress Orientation/consciousness: patient oriented x3 HEENT Face and sinus: Yes normal facial exam Mouth: moist mucous membranes Neck Neck: Yes normal visual inspection, Yes full ROM and Yes trachea midline Chest Chest palpation & inspection: normal inspection of the chest Resp Effort & Inspection: normal respiratory effort, able to speak in complete sentences and no respiratory distress GI Inspection: Yes normal to inspection Back/Spine/Pelvis Cervical Spine: normal cervical lordosis Thoracic/Lumbar Spine: thoracic and lumbar spine normal to inspection Skin General skin exam: no rashes or lesions noted Neuro General: patient oriented x3, gait normal, tone normal and moves all extremities Extrem General: Yes normal to inspection and Yes capillary refill normal Office Procedures Vasectomy Details: Preoperative diagnosis: Anxiety regarding Postoperative diagnosis: Anxiety regarding unplanned Procedure: Bilateral vasectomy Informed consent had been completed. Preoperative and postoperative instructions were provided to the patient. The patient has transportation home identified at the completion of the procedure. Anti-anxiolytic prescription medication had been taken after consent verification and all questions answered. A limited amount of pain medication was also provided. The penis was elevated using a rubber band that was attached to the patient's shirt. Both vasa were palpated through the skin using a 3 finger technique and the penoscrotal junction was prepped with Betadine. After Betadine application the left vas was elevated using a 3 finger grasping technique. 1% lidocaine was used to create a subdermal bubble. Further anesthetic was then advanced using the 25-gauge needle along the vasa in a proximal fashion. Approximately 2 minutes were allowed to for local anesthetic uptake. Using the sharp spreading instrument the scrotal skin was spread longitudinally in line with the vasa until the subdermal layer had been divided. The vasa was then elevated from the scrotum using a ring clamp. Care was taken to elevate the superior portion of the vasa by rotating the ring clamp in a caudad direction. The battery powered cautery was used to divide the vasal sheath in a longitudinal direction on the exposed vasa and to strip the vasal sheath from the vasa. The sharp spreading instrument was used to further expose the vas within the vasal sheath. A 2nd narrower ring clamp was placed on the exposed vas and used to lift the vas from the vasal sheath. The cautery was used to divide vasal attachments and allow full exposure of a small loop of vasa. The sharp spreading instrument was then used to create a tunnel under the vasa and spread to allow the blood vessels of the vasa to retract from the vasa. A mosquito clamp was placed on the proximal portion of the vas. The battery- powered cautery was used to make a partial division in the proximal vas and then inserted in order to cauterize the proximal end of the vas. This was then cut and allowed to retract into the vasal sheath. The mosquito was then used to twist the vasa 180 degrees creating a fascial interposition as the proximal portion of the vas retracted in the vasal sheath. Using a 4-0 chromic suture the fascial interposition was sutured closed. The distal portion of the vas was then cut in order to obtain a segment of vasa. An open distal vas is preferred for minimizing postprocedure pain. The vasa were allowed to retract back into the scrotum. A small snap was then used to approximate the skin edges and allow hemostasis without placement of a suture. A similar procedure was repeated on the right side. He tolerated the procedure well. Triple antibiotic was applied. A gauze was applied. An ice pack was applied to assist with minimizing swelling. Postoperative instructions were confirmed. He understands the need to continue to use control methods. A semen sample should be brought for inspection under the microscope in 10-12 weeks. CPT 55921 Vasectomy performed by: Husam Pino Informed consent given: Yes Informed consent signed: Yes Time out checklist: patient, procedure, site marked/identified, positioning of patient, supplies available, allergies confirmed and team agrees on procedure Anesthetic used: Lidocaine 1.0% with epinephrine Specimens: vas segments not sent to pathology 38065 - Vasectomy Office Meds lidocaine (PF) 10 mg/mL (1 %) injection solution Performing Provider: Husam Pino MD [facility] Administered by: Husam Pino MD on 06/01/25 18:27 Dose Route Admin Location Dispensed Lot Number Expiration Date [facility] [employer] Supervisor 2 mL Infiltration 10 mL Total Dispensed Waste 10 mL 0 % Assessment & Plan Assessment & Plan (1) Anxiety about health: Code(s): R45.89 - Other symptoms and signs involving emotional state Category: Medical Plan Three-month follow-up Orders: Orders AMB Vasectomy 05/29/25 R45.89 - Other symptoms and signs involving emotional state Patient Instructions: This note is constructed using voice recognition software. While every effort has been made to ensure accuracy teacher music errors may have been included. Imaging studies, laboratory and physical exam results were discussed and reviewed in detail. No major barriers to patient understanding were identified. An opportunity to ask questions regarding the treatment plan was provided. All questions were answered. The patient expressed understanding and agreement with the above treatment plan. The patient is aware they should contact our office by phone for worsening of their current condition or the appearance of new urologic symptoms. Compliance is encouraged with any medications and followup testing that is ordered. It is a privilege to participate in the urologic care of your patient. If you have any questions or concerns regarding treatment for the above conditions, or other urologic issues, please do not hesitate to contact me. The office telephone contact is [phone]. Sincerely, Dr Husam Pino MD, [facility] - Urology Compassionate Specialist Care for the Genitourinary System Coding Level of Care Code Procedure Only Diagnoses Anxiety about health R45.89 CPT Codes Office Procedure - CPT: 12482 - Vasectomy ([id number])
--- OUTSIDE RECORDS SUMMARY | 2025-05-29 17:19 | XMS_ITS | Encounter Summary ---
Author Organization [employer] Address [address] [place] [address] [place] [address] Care Team Providers Care Equipment Specialist Name Role Phone Evi Holm MD Primary Care Provider [phone] Reason for Visit * Reason Onset Date Comments Letter for School/Work 12/08/2023 Encounter Details Date Type Department Care Team ([facility] st Contact Info) Description 12/08/2023 Telephone [facility] MED & PEDS [address] [place] [address] Evi Holm MD [address] [place] [address] Letter for School/Work Social History Tobacco Use [...] on filedocumented in this encounter Care Teams Equipment Specialist Relationship Specialty Start Date End Date Evi Holm MD [address] [place] [phone] PCP - General Internal Medicine 07/19/21 documented as of this encounter
--- OUTSIDE RECORDS SUMMARY | 2025-05-29 17:20 | XMS_ITS | Clinical Summary ---
Author Organization [employer] Address [address] [facility] 7[address] [place] [address] Care Team Providers Care Security Consultant Name Role Phone Evi Holm MD Primary Care Provider [phone] Allergies No known active allergies Medications econazole [...] auto-injectorIn dications:Sever e obesity (BMI >= 40) ([facility]) 0.25 mg once a week. 2 mL 11 5 Active Active Problems Problem Noted Date Diagnosed Date Pilonidal cyst 12/18/2019 Elevated blood pressure reading 12/18/2019 Morbid obesity 10/20/2016 Immunizations Immunization Administration Dates Next Due Hep [...] d or Tdap) 07/29/2023 07/29/2013 COVID-19 Vaccine (1 - 2023-2 5 season) 2025 Influenza Vaccine (#1) 2025 Alcohol/Substance Use Screening [...] Routine 01/30/2025 12:04 PM EDT STD (male) LIPID PANEL, STANDARD Routine 01/30/2025 12:04 PM EDT Elevated blood pressure reading Annual physical exam from Last 3 Months or Most Recently Relevant to Health Maintenance Results * Hepatitis C Antibody with Reflex to HCV, RNA, Quantitative, Real-Time PCR (01/30/2025 12:04 PM EDT) Hepatitis C Antibody Nonreactive Nonreactive [facility] Comment:Antibodies to HCV no t detected; does not exclude early acuteHCV infection. Blood Venous blood specimen / Unknown 01/30/2025 12:04 PM EDT 01/30/2025 2:19 PM EDT Evi Holm MD LAB BLOOD ORDERABLES Final Result [facility] [address] [place] [phone] * HIV-1/2 Antigen and Antibodies, Fourth Generation, with Reflexes (01/30/2025 12:04 PM EDT) Pathologist [facility] HIV AB/AG Nonreactive Nonreactive [facility] Comment:HIV-1 p24 Ag and/or HIV-1/HIV-2 Ab not detected.A test result that is nonreactive does not exclude thepossibility of exposure to or infection with HIV-1 and/orHIV-2. Nonreactive results in this assay for individualswith prior exposure to HIV-1 and/or HIV-2 may be due toantigen and antibody levels that are below the limit ofdetection of this assay.The [employer] HIV Ag/Ab Combo assay result andsupplemental assay results should be interpreted inconjunction with the patient's clinical presentation,history and other laboratory results. If the results areinconsistent with clinical evidence, additional testing issuggested to confirm the result. Blood Venous blood specimen / Unknown 01/30/2025 12:04 PM EDT 01/30/2025 2:19 PM EDT us Evi Holm MD LAB BLOOD ORDERABLES Final Result Performing Organization Address [facility] Co de Phone Number [facility] [address] [place] [phone] * (ABNORMAL) Lipid Panel, Standard (01/30/2025 12:04 PM EDT) Triglycerides 92 <150 mg/dL [facility] Comment:Desirable Triglyceri de: less than 150 mg/dLBorderline High Triglyceride 150-199 mg/dLHigh Triglyceride: 200-499 mg/dLVery High Triglyceride: greater than or equal to 5OO mg/dL Cholesterol 168 <200 mg/dL [facility] Comment:Desirable Cholestero l: less than 200 mg/dLBorderline High Cholesterol: 200-239 mg/dLHigh Cholesterol: greater than 239 mg/dL LDL Cholesterol Calculated 108(H) <100 mg/dL [facility] Comment:Desirable LDL: less than 100 mg/dLNear Optimal/Above Optimal LDL: 110- 129 mg/dLBorderline High LDL: 130-159 mg/dLHigh LDL: 160-189 mg/dLVery High LDL: greater than or equal to 190 mg/dL HDL Cholesterol 42 >40 mg/dL [facility] Comment:Desirable HDL: great er than 40 mg/dL Note: This HDL assay may give artificially low results in patients with liver disease. Blood Venous blood specimen / Unknown 01/30/2025 12:04 PM EDT 01/30/2025 2:19 PM EDT us Evi Holm MD LAB BLOOD ORDERABLES Final Result Performing Organization Address [facility]/ZIP Co de Phone Number [facility] [address] [place] [phone] [phone] from Last 3 Months or Most Recently Relevant to Health Maintenance Insurance [facility] PPO Care Teams Security Consultant Relationship Specialty Start Date End Date Evi Holm MD [address] [place] [id number] PCP - General Internal Medicine 07/19/21
== END 2025-05-29 14:38 | disposition home or self-care (01) ==
LOC: HO.HUSH 13:20
PROVIDERS: PCP Internal Medicine; Visit Provider Urology
DX: Z30.2 Encounter for sterilization (principal); R45.89 Other symptoms and signs involving emotional state
CPT/HCPCS: 55250

== ENCOUNTER → 2025-05-29 | Outpatient (BNVA) | payer BC, SELFPAY | PROVIDERS: PCP Internal Medicine; Visit Provider Urology | DX: Z30.2 Encounter for sterilization (principal); R45.89 Other symptoms and signs involving emotional state | CPT/HCPCS: 55250; J2003 ==

== ENCOUNTER 2025-09-02 08:21 | Outpatient (AMB) | payer BC, SELFPAY ==
--- OUTSIDE RECORDS SUMMARY | 2025-09-02 08:39 | XMS_ITS | Clinical Summary ---
Author Organization [employer] [facility] Address [address] [facility] 7[address] [place] [address] Care Team Providers Care Horticultural Farmer Name Role Phone Evi Holm MD Primary Care Provider [phone] Allergies No known active allergies Medications econazole [...] auto-injectorIn dications:Sever e obesity (BMI >= 40) (CMS/HCC) (HCC) 0.25 mg once a week. 2 mL 11 5 Active Active Problems Problem Noted Date Diagnosed Date Pilonidal cyst 12/18/2019 Elevated blood pressure reading 12/18/2019 Morbid obesity (CMS/HCC) 10/20/2016 Immunizations Immunization Administration Dates Next Due [...] Tdap) 07/29/2023 07/29/2013 COVID-19 Vaccine (1 - 2024-2 6 season) 2025 Influenza Vaccine (#1) 2025 Alcohol/Substance [...] PM EDT) Hepatitis C Antibody Nonreactive Nonreactive [facility] Comment:Antibodies to HCV no t detected; does not exclude early acuteHCV infection. Blood Venous blood specimen / Unknown 01/30/2025 12:04 PM EDT 01/30/2025 2:19 PM EDT Evi Holm MD LAB BLOOD ORDERABLES Final Result [facility] [address] [place] [phone] * HIV-1/2 Antigen and Antibodies, Fourth Generation, with Reflexes (01/30/2025 12:04 PM EDT) HIV AB/AG Nonreactive Nonreactive [facility] Comment:HIV-1 p24 Ag and/or HIV-1/HIV-2 Ab not detected.A test result that is nonreactive does not exclude thepossibility of exposure to or infection with HIV-1 and/orHIV-2. Nonreactive results in this assay for individualswith prior exposure to HIV-1 and/or HIV-2 may be due toantigen and antibody levels that are below the limit ofdetection of this assay.The [employer] HIV Ag/Ab Combo assay result andsupplemental assay results should be interpreted inconjunction with the patient's clinical presentation,history and other laboratory results. If the results areinconsistent with clinical evidence, additional testing issuggested to confirm the result. Blood Venous blood specimen / Unknown 01/30/2025 12:04 PM EDT 01/30/2025 2:19 PM EDT us Evi Holm MD LAB BLOOD ORDERABLES Final Result Performing Organization Address [facility] Co de Phone Number [facility] [address] [place] [phone] * (ABNORMAL) Lipid Panel, Standard (01/30/2025 12:04 PM EDT) Triglycerides 92 <150 mg/dL [facility] Comment:Desirable Triglyceri de: less than 150 mg/dLBorderline High Triglyceride 150-199 mg/dLHigh Triglyceride: 200-499 mg/dLVery High Triglyceride: greater than or equal to 5OO mg/dL Cholesterol 168 <200 mg/dL [facility] Comment:Desirable Cholestero l: less than 200 mg/dLBorderline High Cholesterol: 200-239 mg/dLHigh Cholesterol: greater than 239 mg/dL LDL Cholesterol Calculated 108(H) <100 mg/dL [facility] Comment:Desirable LDL: less than 100 mg/dLNear Optimal/Above Optimal LDL: 110- 129 mg/dLBorderline High LDL: 130-159 mg/dLHigh LDL: 160-189 mg/dLVery High LDL: greater than or equal to 190 mg/dL HDL Cholesterol 42 >40 mg/dL [facility] Comment:Desirable HDL: great er than 40 mg/dL Note: This HDL assay may give artificially low results in patients with liver disease. Blood Venous blood specimen / Unknown 01/30/2025 12:04 PM EDT 01/30/2025 2:19 PM EDT us Evi Holm MD LAB BLOOD ORDERABLES Final Result Performing Organization Address [facility]/ZIP Co de Phone Number [facility] [address] [place] [address] [phone] from Last 3 Months or Most Recently Relevant to Health Maintenance Insurance [employer] PPO Care Teams Horticultural Farmer Relationship Specialty Start Date End Date Evi Holm MD [address] [place] [phone] PCP - General Internal Medicine 07/19/21
--- OUTSIDE RECORDS SUMMARY | 2025-09-02 08:39 | XMS_ITS | Clinical Summary ---
Author Organization [employer] Address [address] [place] [address] Care Team Providers Care Nurse Practitioner Home Assessments Name Role Phone Daryn Mariscal MD Primary Care Provider [phone] Surgical History Surgery Date Site/Laterality Comments OTHER [...] on file Sexual Orientation Not on file Last Filed Vital Signs [...] Health Maintenance Due Date Last Done Comments HPV Vaccines (1 - 3-dose SCD M series) 2021 Cholesterol Screening (Lipid Panel) 08/21/2022 HIV Screening 08/21/2022 Hepatitis C Screening 08/21/2022 Social Influencers of Health Screening 08/21/2022 DTaP,Tdap,and Td Vaccines (2 - Td or Tdap) 07/29/2023 07/29/2013 Depression Screening 09/18/2024 COVID-19 Vaccine (1 - 2024-2 6 season) 2025 Influenza Vaccine (#1) 2025 RSV Immunization Adult Patients (1 - 1-dose 75+ series) 2069 Hepatitis [...] age to complete this topic Care Teams Nurse Practitioner Home Assessments Relationship Specialty Start Date End Date Daryn Mariscal [facility] [place] [phone] PCP - General 10/07/22
--- OUTSIDE RECORDS SUMMARY | 2025-09-02 08:39 | XMS_ITS | Encounter Summary ---
Author Organization [employer] Address [address] [place] [address] [place] [address] Care Team Providers Care Leather Splitter Name Role Phone Evi Holm MD Primary Care Provider [phone] Reason for Visit * Reason Onset Date Comments Letter for School/Work 12/08/2023 Encounter Details Date Type Department Care Team ([facility] st Contact Info) Description 12/08/2023 Telephone [facility] CHC MED & PEDS [address] [place] [address] Evi Holm MD [address] [place] [address] Letter for School/Work Social History Tobacco Use [...] on filedocumented in this encounter Care Teams Leather Splitter Relationship Specialty Start Date End Date Evi Holm MD [address] [place] [phone] PCP - General Internal Medicine 07/19/21 documented as of this encounter
--- NOTE | 2025-09-02 08:43 | A.OFFVIS_ITS ---
Intake Visit Reasons: 3m post vasectomy SET (NO AU ) Intake Note: PT PRESENT FOR: 3m post vasectomy UROLOGY MEDICATIONS: NONE BLOOD THINNERS: NONE Associate Professor Of Biostatistics Required: No Accompanied by: Self / Same As Patient Allergies No Known Allergies Allergy (Verified 09/02/25 08:43) HPI Comments Details: Jason is a very pleasant male. He is a patient of Dr Holm?.. He is seen for the following urologic condition - anxiety about health - Vasectomy follow-up No sperm seen on high-powered field evaluation Did have question about STDs No current symptoms Recent HIV negative Did mentioned he should discuss HPV vaccine and confirm he has had both shots Vasectomy procedure The patient presents for vasectomy procedure. He is currently single He has fathered - to 4 child, with a multiple partner. The youngest child is - greater than 1 His partner is aware and permissive for a vasectomy Current form of control is barrier. 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 Review of Systems Const Denies chills and Denies fever(s) Card Reports no additional complaints and Denies syncope Resp Denies cough GI Denies abdominal pain and Denies heartburn Reports as per HPI and Denies change in libido Neuro Denies syncope Psych Denies change in libido Endo Denies change in libido Physical Exam Const General: cooperative, healthy appearing, comfortable and no acute distress Orientation/consciousness: patient oriented x3 HEENT Face and sinus: Yes normal facial exam Mouth: moist mucous membranes Neck Neck: Yes normal visual inspection, Yes full ROM and Yes trachea midline Chest Chest palpation & inspection: normal inspection of the chest Resp Effort & Inspection: normal respiratory effort, able to speak in complete sentences and no respiratory distress GI Inspection: Yes normal to inspection Back/Spine/Pelvis Cervical Spine: normal cervical lordosis Thoracic/Lumbar Spine: thoracic and lumbar spine normal to inspection Skin General skin exam: no rashes or lesions noted Neuro General: patient oriented x3, gait normal, tone normal and moves all extremities Extrem General: Yes normal to inspection and Yes capillary refill normal Assessment & Plan Assessment & Plan (1) Anxiety about health: Code(s): R45.89 - Other symptoms and signs involving emotional state Category: Medical Plan PRN Patient Instructions: This note is constructed using voice recognition software. While every effort has been made to ensure accuracy trolley car mechanic errors may have been included. Imaging studies, laboratory and physical exam results were discussed and reviewed in detail. No major barriers to patient understanding were identified. An opportunity to ask questions regarding the treatment plan was provided. All questions were answered. The patient expressed understanding and agreement with the above treatment plan. The patient is aware they should contact our office by phone for worsening of their current condition or the appearance of new urologic symptoms. Compliance is encouraged with any medications and followup testing that is ordered. It is a privilege to participate in the urologic care of your patient. If you have any questions or concerns regarding treatment for the above conditions, or other urologic issues, please do not hesitate to contact me. The office telephone contact is [phone]. Sincerely, Dr Husam Pino MD, [facility] - Urology Compassionate Specialist Care for the Genitourinary System Coding Level of Care Code Est Pt Level 3 (09865) Diagnoses Anxiety about health R45.89
== END 2025-09-02 09:04 | disposition home or self-care (01) ==
LOC: HO.HUSH 08:22
PROVIDERS: PCP Internal Medicine; Visit Provider Urology
DX: R45.89 Other symptoms and signs involving emotional state (principal)
CPT/HCPCS: 99213